=== PATIENT | female | born 1960 | race Caucasian/White ===

== ENCOUNTER 2017-07-21 17:30 | Emergency (ER) | payer MEDICARE, OTHER ==
[2017-07-21] MEDS ORDERED: fentaNYL 100 MCG/2 ML SDV IVPUSH ONE ×2 (17:46→19:33)
[2017-07-21] MEDS ORDERED: Lactated Ringers 1,000 ML IV ONE (17:46)
[2017-07-21] MEDS ORDERED: Ondansetron 4 MG/2 ML SDV IVPUSH STA (17:46)
[2017-07-21 18:12] LABS: CHLORIDE,CL 93 mEq/L (98-106); SODIUM,NA 129 mEq/L (136-145)
[2017-07-21] MEDS ORDERED: Iopamidol 612 MG/ML 100 ML Bottle IVPUSH ONE (18:47)
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
[2017-07-21] MEDS ORDERED: Lactated Ringers 1,000 ML IV SCH (20:00)
[2017-07-21] MEDS ORDERED: Meropenem 1 GM SDV IVPUSH ONE (20:20)
== END 2017-07-21 21:37 ==
LOC: CC.ED 17:30
DX: K35.2 Acute appendicitis with generalized peritonitis (principal); F17.210 Nicotine dependence, cigarettes, uncomplicated; Z88.0 Allergy status to penicillin; Z88.6 Allergy status to analgesic agent; Z91.018 Allergy to other foods
CPT/HCPCS: 36415; 74177; 80053; 83735; 84703; 85025; 86140; 96365; 96366; 96375; 96376; 99285; J2185; J3010; J7120; Q9967; 96361; 96374; 99284